=== PATIENT | female | born 1945 | race Caucasian/White ===

== ENCOUNTER → 2023-10-17 08:40 | Outpatient (REF) | payer MEDICARE, OTHER, SELFPAY | LOC: PAVMRI 08:40 | PROVIDERS: ATTENDING PHYSICIAN Surgery; FAMILY PHYSICIAN Family Medicine | DX: C64.2 Malignant neoplasm of left kidney, except renal pelvis (principal) | CPT/HCPCS: 71045; 74183; A9575 ==

== ENCOUNTER 2024-01-27 18:59 | Emergency (ER) | payer MEDICARE, OTHER, SELFPAY ==
[2024-01-27 19:02] VITALS: BP 172/78
[2024-01-27] MEDS: KENALOG-10 10 MG INTRAARTIC (20:55)
--- NOTE | 2024-01-27 21:45 | ED.MUSCINJ ---
HPI-Injury
<Nader Mccartney PA-C - Last Filed: 01/27/24 21:48>
General
Chief Complaint: Musculo-Skeletal Complaint
Source: patient
Exam Limitations: none
Time Seen by Provider: 01/27/24 20:01
Travel History
Have you had any contact with someone who has COVID-19?: No
Do you have any symptoms of coronavirus? Fever > 100 degrees, chills, cough, shortness of breath, sore throat, loss of taste or smell, muscle aches, or headache?: No
History of Present Illness-Injury
Initial Injury comments:
78-year-old female presents complaining of right knee pain and swelling. No known injury. She has a history of arthritis. She has received lubricant injections. No fever. No other complaints at this time
Past History
<Nader Mccartney PA-C - Last Filed: 01/27/24 21:48>
Past History
ED Past Medical History: HTN and NIDDM
ED Past Surgical History: Negative Cardiac
Social History
Tobacco: Smoker
Alcohol: None
Drug: None
Personal:
Living: with family
Employment: Retired
Family History
Family History: Diabetes
Phy Exam
<Naedr Mccartney PA-C - Last Filed: 01/27/24 21:48>
Physical Exam
Physical Exam:
General: Well-appearing female no acute distress
Musculoskeletal exam: Swelling noted about right knee. Small effusion noted. She has good extension. She is tender over the anterior medial joint line. No overlying erythema or excessive warmth.
Skin is without erythema.
Injury Course
<Nader Mccartney PA-C - Last Filed: 01/27/24 21:48>
Orders/Labs/Results
Orders:
Orders
01/27/24 19:04
Knee, Right 4 or More Views [CR Knee- Right 4 Or More View*] Urgent
Comment:
Reason For Exam: PAIN/SWELLING
01/27/24 20:28
Triamcinolone Acetonide [Kenalog-10] 10 mg INTRAARTIC NOW STA
<Efren Steele MD - Last Filed: 01/27/24 21:52>
Orders/Labs/Results
Orders:
Orders
01/27/24 19:04
Knee, Right 4 or More Views [CR Knee- Right 4 Or More View*] Urgent
Comment:
Reason For Exam: PAIN/SWELLING
01/27/24 20:28
Triamcinolone Acetonide [Kenalog-10] 10 mg INTRAARTIC NOW STA
<Nader Mccartney PA-C - Last Filed: 01/27/24 21:48>
MDM/Problems Addressed
Differential Diagnosis Includes:
Right knee pain. Consider sprain versus underlying degenerative change. Do not suspect septic arthritis clinically given lack of fever lack of skin changes and good motion
Verbal consent obtained for aspiration of right knee and injection of a steroid medicine for symptomatic relief. X-rays were reviewed which are negative for acute fracture but do show degenerative changes.
Under sterile conditions, the right knee was prepped with Betadine and anesthetized in a local fashion using 1% lidocaine. 18-gauge needle was then used to drain approximately 20 mL of straw-colored fluid out of the right knee. Through the same
needle, a mixture of 1% lidocaine, 0.5% Marcaine and Kenalog was injected intra-articularly. A Band-Aid was then applied.
<Nader Mccartney PA-C - Last Filed: 01/27/24 21:48>
*Critical Care Note
Total Time (30-74mins, 75-104mins- exclusive of procedures): Not Applicable
ED Attending Note
<Nader Mccartney PA-C - Last Filed: 01/27/24 21:48>
-
Portions of this chart may have been created with voice recognition software.� Occasional wrong word or��sound alike� substitutions may have occurred due to the inherent limitations of voice recognition software.
<Efren Steele MD - Last Filed: 01/27/24 21:52>
ED Attending Note
Patient seen and examined by attending physician: Yes
I performed the substantive portion of visit, reviewed & personally made and approve the management plan that is documented in note by myself or SHANIQUA.: Yes
ED Attending Note:
78-year-old female complaining of ongoing right knee pain. Patient is supposed to have knee replacement but has put it off. No fever chills or infectious symptoms. She is here because last year it was drained and neck improved symptoms
significantly.
On exam patient is nontoxic in no distress. She has chronic appearing arthritic changes and swelling to the right knee. There is a small effusion clinically. There is no unusual warmth or erythema.
Clinical suspicion for septic arthritis very low. I explained the risk of an injection and arthrocentesis. Patient insists that she would like this done. She is aware of the risk.
Discharge Plan
Departure
Patient Disposition: Home (Routine Discharge)
Date of Disposition: 01/27/24
Time of Disposition: 21:47
Patient with high blood pressure during this ER visit?: No
Discharge Problem:
Effusion, right knee
Instructions: Muscle and Bone Pain (DC)
Prescriptions:
No Action
amiloride-hydrochlorothiazide 1 TABLET tablet
50 mg PO QPM
simvastatin 80 MG tablet
80 mg PO QPM
glucosamine zimmerman 2KCl-chondroit [Glucosamine Sulf-Chondroitin] 1 EACH capsule
1 cap PO BID
metformin 500 MG tablet extended release 24 hr
1,500 mg PO QPM
gxpoyfxw-llz-RZ-lycopen-lutein [Centrum Silver] 1 EACH tablet
1 ea PO DAILY
Potassium Gluconate 595 MG Tab
3 tab PO DAILY
acetaminophen 325 MG tablet
650 mg PO Q4HPRN PRN (Reason: mild pain) 0RF
hydrocodone-acetaminophen 1 TABLET tablet
1 - 2 tab PO Q4HPRN PRN (Reason: moderate to severe pain) Qty: 25 0RF
hydrocodone-acetaminophen 1 TABLET tablet
1 - 2 tab PO Q4HPRN PRN (Reason: moderate to severe pain) Qty: 20 0RF
Referrals:
Jacek Colbert MD [Family Provider] -
Activity Restrictions/Additional Instructions:
You may continue with Tylenol for pain. Follow-up with your orthopedic doctor. Return if needed
Interventions
Interventions:
*Risk Screen - Suicide Last Done: 01/27/24 19:02
*General Assessment Last Done: 01/27/24 21:10
*Neglect/Abuse Screening Last Done: 01/27/24 19:02
*ED COVID-19 Vaccine History Last Done: 01/27/24 21:10
ED-Musculoskeletal Assessment Last Done: 01/27/24 21:10
Discharge Date and Time
Print Language: GABONESE
== END 2024-01-27 21:57 | disposition home or self-care (01) ==
LOC: EMR 18:59
PROVIDERS: EMERGENCY PHYSICIAN Emergency Medicine; FAMILY PHYSICIAN Family Medicine
DX: M25.461 Effusion, right knee (principal); I10 Essential (primary) hypertension; E11.9 Type 2 diabetes mellitus without complications; F17.200 Nicotine dependence, unspecified, uncomplicated; Z83.3 Family history of diabetes mellitus
CPT/HCPCS: 99283; 73564

== ENCOUNTER 2024-04-15 19:49 | Emergency (ER) | payer MEDICARE, OTHER, SELFPAY ==
[2024-04-15 19:51] VITALS: BP 194/84
--- NOTE | 2024-04-15 20:07 | ED.GENMED ---
History of Present Illness
General
Chief Complaint: Musculo-Skeletal Complaint
Source: patient
Exam Limitations: none
Time Seen by Provider: 04/15/24 19:59
History of Present Illness
History of Present Illness:
See MDM
Past History
Past History
ED Past Medical History: HTN and NIDDM
ED Past Surgical History: Negative Cardiac
Social History
Tobacco: Smoker
Alcohol: None
Drug: None
Personal:
Living: with family
Employment: Retired
Family History
Family History: Diabetes
Phy Exam
Physical Exam
Physical Exam:
See MDM
Course
Orders/Labs/Results
Orders:
Orders
04/15/24 20:16
Triamcinolone Acetonide [Kenalog-10] 10 mg INTRAARTIC NOW STA
Vital Signs
Initial and Last Documented VS:
Initial Vital Signs
Temp Pulse Resp BP Pulse Ox
97.8 F 94 22 194/84 100
04/15/24 19:51 04/15/24 19:51 04/15/24 19:51 04/15/24 19:51 04/15/24 19:51
Last Documented Vital Signs
Temp Pulse Resp BP Pulse Ox
97.8 F 94 22 194/84 100
04/15/24 19:51 04/15/24 19:51 04/15/24 19:51 04/15/24 19:51 04/15/24 19:51
Procedures
Incision/Drainage/Joint Aspiration
Right Anterior Medial Knee:
Anethesia: 1% Lidocaine
Preparation: cleaned with Betadine
Type of procedure: drain
Nature of site: other (Effusion)
Description of abscess: greater than 3cm
Loculations broken up: No
How much fluid was obtained?: number in mls (30 mL)
Fluid description: straw colored
Treatment: bandaid applied
Additional information:
After 30 mL of straw-colored fluid was removed, 10 mL of Kenalog was injected
MDM/Problems Addressed
Differential Diagnosis Includes:
HPI and MDM Narrative:
78-year-old female presenting with right knee swelling and pain. Symptoms started earlier this morning. She does have a history of arthritis and states she is being followed up for a knee replacement. She denies trauma, redness or fevers.
Patient states last time she had something like this she received a knee injection of steroids which helped
Physical exam
General: Well appearing and non-toxic
HEENT: protecting airway
Neck: appears supple
CV: No evidence of cyanosis
Resp: No accessory muscle use
Abd: Non-distended
Extremities: Right knee effusion without skin changes. No micromotion tenderness.
Neuro: alert
Psych: Normal affect
Skin: Intact
Problems Addressed including Acute and Chronic Conditions affecting care:
1. Right knee effusion
Acuity: acute
Prognosis: stable
Details: Patient gave verbal consent for arthrocentesis and injection of steroids understand the risk of infection
Updates
Patient tolerated procedure well. 30 cc of straw-colored fluid removed from right knee. 10 mL of Kenalog was injected. Patient tolerated procedure well without complication
Differential Diagnosis (but not limited to): Knee effusion, arthritis
Testing considered: Knee x-ray but she denies trauma
Drug therapy (if applicable): OTC meds, please see d/c instruction regarding Rx drugs
Amount and/or Complexity of Data Reviewed
Clinical info obtained from: Patient
External data reviewed: N/A
Labs I independently reviewed (but not limited to): N/A
Radiology: N/A
Pulse Ox: not hypoxic
EKG independently reviewed: N/A
Membership Administrator: N/A
Critical Care: N/A
Risk of Complication:
Social Determinants of health: Good social support
Discussed with other providers: N/A
Escalation of Care includes Admit/Obs: After being observed in the Emergency Department, pt stable for discharge.
Occasional wrong word or 'sound a like' substitutions may have occurred due to the inherent limitations of voice recognition software. Read the chart carefully and recognize, using context, where substitutions have occurred.
*Critical Care Note
Total Time (30-74mins, 75-104mins- exclusive of procedures): Not Applicable
ED Attending Note
-
Portions of this chart may have been created with voice recognition software.� Occasional wrong word or��sound alike� substitutions may have occurred due to the inherent limitations of voice recognition software.
Discharge Plan
Departure
Patient Disposition: Home (Routine Discharge)
Date of Disposition: 04/15/24
Time of Disposition: 20:39
Patient with high blood pressure during this ER visit?: Yes
Discharge Problem:
Effusion of knee joint right
Instructions: BLOOD PRESSURE
Prescriptions:
No Action
amiloride-hydrochlorothiazide 1 TABLET tablet
50 mg PO QPM
simvastatin 80 MG tablet
80 mg PO QPM
glucosamine zimmerman 2KCl-chondroit [Glucosamine Sulf-Chondroitin] 1 EACH capsule
1 cap PO BID
metformin 500 MG tablet extended release 24 hr
1,500 mg PO QPM
ukbzkgjv-ion-XA-lycopen-lutein [Centrum Silver] 1 EACH tablet
1 ea PO DAILY
Potassium Gluconate 595 MG Tab
3 tab PO DAILY
acetaminophen 325 MG tablet
650 mg PO Q4HPRN PRN (Reason: mild pain) 0RF
hydrocodone-acetaminophen 1 TABLET tablet
1 - 2 tab PO Q4HPRN PRN (Reason: moderate to severe pain) Qty: 25 0RF
hydrocodone-acetaminophen 1 TABLET tablet
1 - 2 tab PO Q4HPRN PRN (Reason: moderate to severe pain) Qty: 20 0RF
Referrals:
Jacek Colbert MD [Family Provider] -
Activity Restrictions/Additional Instructions:
I removed 30 mL of normal-appearing fluid from your right knee. I injected 10 mL of Kenalog which is a long-acting steroid. Please follow-up with your orthopedist to discuss further treatment options and placement. Return for worsening pain or if
you develop any redness or fevers.
Please talk to your doctor about your elevated blood pressure.
Interventions
Interventions:
*Risk Screen - Suicide Last Done: 04/15/24 19:51
*Neglect/Abuse Screening Last Done: 04/15/24 19:51
ED-Musculoskeletal Assessment Last Done: 04/15/24 19:58
Discharge Date and Time
Print Language: FRENCH
[2024-04-15 20:14] VITALS: BMI 25.6
[2024-04-15] MEDS: KENALOG-10 10 MG INTRAARTIC (20:38)
[2024-04-15 20:56] VITALS: BP 182/85
== END 2024-04-15 20:59 | disposition home or self-care (01) ==
LOC: EMR 19:49
PROVIDERS: EMERGENCY PHYSICIAN Student in an Organized Health Care Education/Training Program; FAMILY PHYSICIAN Family Medicine
DX: M25.461 Effusion, right knee (principal); I10 Essential (primary) hypertension; F17.200 Nicotine dependence, unspecified, uncomplicated
CPT/HCPCS: 99284; 20610

== ENCOUNTER 2024-05-12 00:29 | Emergency (ER) | payer MEDICARE, OTHER, SELFPAY ==
[2024-05-12 00:35] VITALS: BP 122/75
[2024-05-12 01:05] LABS: % Basophils 0.3 % (0-2); % Immature Granulocytes 0.8 % (0-0.5); % Lymphocytes 3.6 % (20.5-51.1); % Monocytes 7.1 % (1.7-9.3); % Neutrophils 85.2 % (42.2-75.2); Absolute Eosinophils 0.4 10^3/uL (0-0.7); Absolute Immature Granulocytes 0.1 10^3/uL (0-0.05); Absolute Lymphocytes 0.5 10^3/uL (1.2-3.4); Absolute Neutrophils 11.9 10^3/uL (1.4-6.5); Hematocrit 34.8 % (37.0-47.0); Hemoglobin 12.3 g/dL (12.0-16.0); Mean Corp Hgb Conc. 35.3 g/dL (33.0-37.0); Mean Corpuscular Hgb 29.9 pg (27.0-31.0); Mean Corpuscular Volume 84.5 fL (81.0-99.0); Mean Platelet Volume 9.1 fL (7.4-10.4); Nucleated Red Blood Cells % 0 %; Platelet Count 258 10^3/uL (130-400); Red Blood Cell Count 4.12 10^6/uL (4.20-5.40); Red Cell Dist. Width 12.5 % (11.5-14.5)
[2024-05-12 01:08] LABS: Urine Albumin 3+ (Neg - Trace); Urine Bilirubin Negative (Negative); Urine Character Clear (Clear); Urine Color Yellow; Urine Glucose Negative (Negative); Urine Ketone 1+ (Negative); Urine Leukocyte Negative (Negative); Urine Nitrite Negative (Negative); Urine Occult Blood Negative (Negative); Urine Specific Gravity 1.015 (<1.030); Urine Urobilinogen Negative (Neg - 1+)
[2024-05-12 01:17] LABS: Lactic Acid 1.8 mmol/L (0.7-2.0)
[2024-05-12 01:18] LABS: ALT (SGPT) 20 U/L (0-35); AST (SGOT) 32 U/L (14-36); Albumin 4.2 g/dl (3.5-5.0); Alkaline Phosphatase 78 U/L (38-126); Blood Urea Nitrogen 18 mg/dl (7-17); Calcium 11.1 mg/dl (8.4-10.2); Carbon Dioxide 25 mmol/L (22-30); Chloride 90 mmol/L (98-107); Glucose 150 mg/dl (70-99); Potassium 3.6 mmol/L (3.5-5.1); Sodium 129 mmol/L (135-145); Total Protein 6.9 g/dl (6.3-8.2); eGFR > 60.00
[2024-05-12 01:19] LABS: Urine Bacteria Few (Negative); Urine Red Blood Cell 0-2 /HPF (0-2)
[2024-05-12 01:20] LABS: COVID-19 Antigen Negative (Negative)
[2024-05-12 01:29] LABS: Troponin I < 0.012 ng/ml
[2024-05-12 02:06] VITALS: BMI 24.4
[2024-05-12] MEDS: NSS 1000 IV ×2 (02:16→03:48)
--- NOTE | 2024-05-12 02:17 | ED.GENMED ---
History of Present Illness
<Rio Agarwal DO - Last Filed: 05/12/24 02:34>
General
Chief Complaint: Fever
Time Seen by Provider: 05/12/24 01:15
<Della Guy DO, Resident - Last Filed: 05/12/24 05:06>
General
Source: patient and spouse
Exam Limitations: none
Nursing documentation reviewed up to this point in time: agreed with
Travel History
Have you traveled to any high risk areas for coronavirus over the past 14 days?: No
Have you had any contact with someone who has COVID-19?: No
Do you have any symptoms of coronavirus? Fever > 100 degrees, chills, cough, shortness of breath, sore throat, loss of taste or smell, muscle aches, or headache?: Yes
History of Present Illness
History of Present Illness:
Ms. Maral Cordova is a 78yo F pmh HTN, diabetes, L renal cell carcinoma s/p nephrectomy in the ED for fever. Yesterday she started having chills, headache, SOB, productive cough, dizziness, lightheadedness, and nausea. She vomited earlier today,
no hematemesis. She reports intermittent chest tightness over her sternum. Denies diarrhea, abdominal pain, palpitations, sore throat. Still has increased urinary frequency from UTI. brought her to the ER after she developed a fever of 101.5.
COVID negative at home.
She is currently on an antibiotic for a UTI and admits she has missed doses due to feeling unwell.
Past History
<Della Guy DO, Resident - Last Filed: 05/12/24 05:06>
Past History
ED Past Medical History: Cancer (L renal cell carcinoma, s/p nephrectomy), HTN, NIDDM and Psychiatric
ED Past Surgical History: Cholecystectomy, Gynecological and Orthopedic
Social History
Tobacco: Smoker
Alcohol: None
Drug: None
Personal:
Living: with family
Employment: Retired
Family History
Family History: Diabetes
Review of Systems
<Dlela Guy DO, Resident - Last Filed: 05/12/24 05:06>
Review of Systems
Allergies reviewed?: Yes
All Other Systems: ROS reviewed and negative except as documented in HPI and ROS
Phy Exam
<Della Guy DO, Resident - Last Filed: 05/12/24 05:06>
General Physical Exam
General Presentation: mild distress
General age: appears older than age
General Skin: warm and dry
General Habitus: elderly
General Mental: alert
General Hydration: dry mucous membranes and poor skin turgor
Cardiovascular Exam
Cardiovascular Exam: no edema, no gallop, no murmur and tachycardia
Heart Sounds: normal
Pulmonary Exam
Pulmonary Exam: no rales, no crackles, no rhonchi, no stridor, no wheezing, no cough, accessory muscle use and decreased breath sounds
Respiratory Effort: tachypnea
Oxygen Status: room air
Gastrointestinal Exam
Gastrointestinal Exam: non tender, soft, no organomegaly and non distended
Auscultation of Abdomen: hyperactive
Neurological Exam
Neurological Exam: alert, oriented x3 and speech normal
Psychiatric Exam
Psychiatric Exam: normal mood/affect
Course
<Rio Agarwal, DO - Last Filed: 05/12/24 02:34>
Orders/Labs/Results
Orders:
Orders
05/12/24 00:39
Electrocardiogram (*1) Urgent
Reason for Study: Other
Other Reason for Exam: Possible Sepsis
EKG- Treatment ONCE
CR Chest - 2 Views Urgent
Comment:
Reason For Exam: fever, cough
05/12/24 00:57
COVID-19 Antigen Urgent
Source: Nasal Swab
Complete Blood Count/With Diff Urgent
Comprehensive Metabolic Panel Urgent
Lactic Acid Q4H
Comment: ON ICE, CANCEL 2ND ORDER IF FIRST LACTIC ACID LEVEL <2
Troponin I Urgent
Urinalysis Reflex To Culture Urgent
Date Specimen was Collected: 05/12/24
Time Specimen was Collected: 00:55
Urine Microscopic Reflex Cult Urgent
Influenza A+B Rapid Molecular Urgent
SANJAY Source: Nasal Swab
Specimen Description:
Date Specimen was Collected: 05/12/24
Time Specimen was Collected: 00:55
05/12/24 02:06
0.9% Sodium Chloride 1000 ml [Nss] 1,000 ml IV BOLUS
05/12/24 02:17
Acetaminophen [Tylenol] 650 mg PO NOW STA
05/12/24 03:43
0.9% Sodium Chloride 1000 ml [Nss] 1,000 ml IV BOLUS
Abnormal Lab Results
05/12/24
00:57
WBC 14.0 H 10^3/uL
(4.8-10.8)
RBC 4.12 L 10^6/uL
(4.20-5.40)
Hct 34.8 L %
(37.0-47.0)
Abs Immat Gran (auto) 0.1 H 10^3/uL
(0-0.05)
Absolute Neuts (auto) 11.9 H 10^3/uL
(1.4-6.5)
Absolute Lymphs (auto) 0.5 L 10^3/uL
(1.2-3.4)
Absolute Monos (auto) 1.0 H 10^3/uL
(0.1-0.6)
Immature Gran % 0.8 H %
(0-0.5)
Neutrophils % 85.2 H %
(42.2-75.2)
Lymphocytes % 3.6 L %
(20.5-51.1)
Sodium 129 L mmol/L
(135-145)
Chloride 90 L mmol/L
(98-107)
BUN 18 H mg/dl
(7-17)
Glucose 150 H mg/dl
(70-99)
Calcium 11.1 H mg/dl
(8.4-10.2)
Total Bilirubin 2.0 H mg/dl
(0.2-1.3)
Urine Ketones 1+ A
(Negative)
Urine Bacteria (Reflex) Few A
(Negative)
Urine Albumin (Reflex) 3+ A
(Neg - Trace)
05/12/24 00:57
05/12/24 00:57
Vital Signs
Initial and Last Documented VS:
Initial Vital Signs
Temp Pulse Resp BP Pulse Ox
100.6 F H 132 26 122/75 95
05/12/24 00:35 05/12/24 00:35 05/12/24 00:35 05/12/24 00:35 05/12/24 00:35
Last Documented Vital Signs
Temp Pulse Resp BP Pulse Ox
100.2 F 90 21 132/55 100
05/12/24 03:06 05/12/24 04:45 05/12/24 04:45 05/12/24 03:03 05/12/24 04:15
<Della Guy DO, Resident - Last Filed: 05/12/24 05:06>
Orders/Labs/Results
Orders:
Orders
05/12/24 00:39
Electrocardiogram (*1) Urgent
Reason for Study: Other
Other Reason for Exam: Possible Sepsis
EKG- Treatment ONCE
CR Chest - 2 Views Urgent
Comment:
Reason For Exam: fever, cough
05/12/24 00:57
COVID-19 Antigen Urgent
Source: Nasal Swab
Complete Blood Count/With Diff Urgent
Comprehensive Metabolic Panel Urgent
Lactic Acid Q4H
Comment: ON ICE, CANCEL 2ND ORDER IF FIRST LACTIC ACID LEVEL <2
Troponin I Urgent
Urinalysis Reflex To Culture Urgent
Date Specimen was Collected: 05/12/24
Time Specimen was Collected: 00:55
Urine Microscopic Reflex Cult Urgent
Influenza A+B Rapid Molecular Urgent
SANJAY Source: Nasal Swab
Specimen Description:
Date Specimen was Collected: 05/12/24
Time Specimen was Collected: 00:55
05/12/24 02:06
0.9% Sodium Chloride 1000 ml [Nss] 1,000 ml IV BOLUS
05/12/24 02:17
Acetaminophen [Tylenol] 650 mg PO NOW STA
05/12/24 03:43
0.9% Sodium Chloride 1000 ml [Nss] 1,000 ml IV BOLUS
Abnormal Lab Results
05/12/24
00:57
WBC 14.0 H 10^3/uL
(4.8-10.8)
RBC 4.12 L 10^6/uL
(4.20-5.40)
Hct 34.8 L %
(37.0-47.0)
Abs Immat Gran (auto) 0.1 H 10^3/uL
(0-0.05)
Absolute Neuts (auto) 11.9 H 10^3/uL
(1.4-6.5)
Absolute Lymphs (auto) 0.5 L 10^3/uL
(1.2-3.4)
Absolute Monos (auto) 1.0 H 10^3/uL
(0.1-0.6)
Immature Gran % 0.8 H %
(0-0.5)
Neutrophils % 85.2 H %
(42.2-75.2)
Lymphocytes % 3.6 L %
(20.5-51.1)
Sodium 129 L mmol/L
(135-145)
Chloride 90 L mmol/L
(98-107)
BUN 18 H mg/dl
(7-17)
Glucose 150 H mg/dl
(70-99)
Calcium 11.1 H mg/dl
(8.4-10.2)
Total Bilirubin 2.0 H mg/dl
(0.2-1.3)
Urine Ketones 1+ A
(Negative)
Urine Bacteria (Reflex) Few A
(Negative)
Urine Albumin (Reflex) 3+ A
(Neg - Trace)
05/12/24 00:57
05/12/24 00:57
Vital Signs
Initial and Last Documented VS:
Initial Vital Signs
Temp Pulse Resp BP Pulse Ox
100.6 F H 132 26 122/75 95
05/12/24 00:35 05/12/24 00:35 05/12/24 00:35 05/12/24 00:35 05/12/24 00:35
Last Documented Vital Signs
Temp Pulse Resp BP Pulse Ox
100.2 F 90 21 132/55 100
05/12/24 03:06 05/12/24 04:45 05/12/24 04:45 05/12/24 03:03 05/12/24 04:15
<Della Guy DO, Resident - Last Filed: 05/12/24 05:06>
MDM/Problems Addressed
Differential Diagnosis Includes:
shock, pneumonia, bacteremia, UTI
MDM/Problems Addressed:
Ms. Maral Cordova is a 78yo F pmh HTN and diabetes in the ED for fever.
Shock is unlikely at this time as patient's tachycardia improved with IV fluids. Along with exam findings of dry mucous membranes and skin tenting, it is more likely that the patient was volume depleted.
UTI is likely resolved at this time as the urinalysis/urine microscopy is negative for blood, nitrites, leukocyte esterase. There are few bacteria, which could be from contamination since there are also squamous epithelial cells present.
Pneumonia is unlikely at this time as there are no areas of consolidations on CXR, COVID/flu swabs are negative, and no rales/rhonchi/wheezing on pulmonary auscultation.
Bacteremia is less likely at this time as the pt is already on antibiotic course, resolved UTI, and no infectious finding on CXR.
02:55
Walked into room and the pt was sleeping. She awoke, and states she is starting to feel better. Her tachycardia is improving with fluids (132 --> 105). Her fever has resolved.
03:40
1 L normal saline finished. Pt feels better, however she still has a headache and feels dehydrated. Will order another saline bolus.
05:00
Pt is sleeping. HR has further improved to the mid 80s.
Chronic conditions affecting care: DM, HTN, Previous abdomnial surgery and Psychiatric illness
<Della Guy DO, Resident - Last Filed: 05/12/24 05:06>
*Radiology
Radiology exam reviewed: preliminary read by ED provider
*EKG
Interpreted by ED Provider?: Yes
Interpretation: abnormal
Comparison EKG: changes noted
Heart Rate: 119
Rate: tachycardiac
Rhythm: sinus
Interval: normal interval, normal QT interval and normal LA interval
QRS Pattern: right bundle branch block
Ischemia: no ischemia
*Organizational Consultant Interpretation
Rate: tachycardiac
Interpretation: abnormal
Heart Rate: 108
Rhythm: sinus
*Critical Care Note
Total Time (30-74mins, 75-104mins- exclusive of procedures): Not Applicable
Data Reviewed
Review of Other/Old Records Reveals: Labs and Records
Source: patient, records and previous hospital records
ED Attending Note
<Rio Agarwal DO - Last Filed: 05/12/24 02:34>
ED Attending Note
Patient seen and examined by attending physician: Yes
I performed a history and physical exam of patient and discussed management with resident, I reviewed resident's note and agree with documented findings and plan of care.: Yes
ED Attending Note:
I have seen and evaluated the patient with a [id number] encounter. I have spoken to the resident and involved in the medical history, the physical exam, medical decision making.
Evaluation and management service: agree unless noted differently below.
Results interpretation: agree unless noted differently below.
Focused HPI: 78-year-old female presenting with shortness of breath, cough and fever. Patient found to be febrile arrival. She is currently on antibiotic for urinary tract infection. She still feels some urinary symptoms
Physical exam: Mildly dry. Lungs are clear. Abdomen soft nontender. Posterior pharynx clear
Medical Decision Making: Patient found to have a fever but she is already on antibiotics. There is no bacterial infection noted on exam. Her lungs are clear and her abdomen is soft and nontender. She does have some lab abnormalities which
included an expected leukocytosis. She is mildly but not far from baseline. Her leukocytosis appears to be chronic as well and we discussed having this followed up as an outpatient. Her elevated bilirubin is also chronic. Her abdomen is soft and
nontender. Although she still has some urinary symptoms, her urine appears clear. Her chest x-ray is also clear as well. We discussed the likelihood of viral syndrome. Will reassess after IV fluids
<Della Guy DO, Resident - Last Filed: 05/12/24 05:06>
-
Portions of this chart may have been created with voice recognition software.� Occasional wrong word or��sound alike� substitutions may have occurred due to the inherent limitations of voice recognition software.
Discharge Plan
Departure
Patient Disposition: Home (Routine Discharge)
Date of Disposition: 05/12/24
Time of Disposition: 03:48
Patient with high blood pressure during this ER visit?: No
Condition: Fair
Discharge Problem:
Dehydration symptoms, Acute viral syndrome
Instructions: Viral Syndrome (DC), Dehydration, Adult ED
Prescriptions:
No Action
amiloride-hydrochlorothiazide 1 TABLET tablet
50 mg PO QPM
simvastatin 80 MG tablet
80 mg PO QPM
glucosamine zimmerman 2KCl-chondroit [Glucosamine Sulf-Chondroitin] 1 EACH capsule
1 cap PO BID
metformin 500 MG tablet extended release 24 hr
1,500 mg PO QPM
hfjscitl-arf-PC-lycopen-lutein [Centrum Silver] 1 EACH tablet
1 ea PO DAILY
Potassium Gluconate 595 MG Tab
3 tab PO DAILY
acetaminophen 325 MG tablet
650 mg PO Q4HPRN PRN (Reason: mild pain) 0RF
hydrocodone-acetaminophen 1 TABLET tablet
1 - 2 tab PO Q4HPRN PRN (Reason: moderate to severe pain) Qty: 25 0RF
hydrocodone-acetaminophen 1 TABLET tablet
1 - 2 tab PO Q4HPRN PRN (Reason: moderate to severe pain) Qty: 20 0RF
Referrals:
Jacek Colbert MD [Family Provider] -
Activity Restrictions/Additional Instructions:
Please continue drinking plenty of clear fluids to stay hydrated.
Please continue taking your antibiotics until they are finished.
Please call Dr. Colbert in the morning and schedule a follow-up appointment.
Please return to the emergency department if your symptoms worsen. This includes worsening cough, shortness of breath, worsening vomiting, feeling dehydrated and unable to keep fluids down.
Interventions
Interventions:
*Risk Screen - Suicide Last Done: 05/12/24 00:35
*General Assessment Last Done: 05/12/24 00:35
*Neglect/Abuse Screening Last Done: 05/12/24 00:35
ED- Fall Risk Assessment Last Done: 05/12/24 02:02
*ED COVID-19 Vaccine History Last Done: 05/12/24 02:02
ED- Neurological Assessment Last Done: 05/12/24 02:02
ED-Skin Assessment Last Done: 05/12/24 02:02
Discharge Date and Time
Print Language: YI
[2024-05-12] MEDS: TYLENOL 650 MG PO (02:24)
[2024-05-12 03:03] VITALS: BP 132/55
== END 2024-05-12 05:45 | disposition home or self-care (01) ==
LOC: EMR 00:29
PROVIDERS: EMERGENCY PHYSICIAN Student in an Organized Health Care Education/Training Program; FAMILY PHYSICIAN Family Medicine
DX: B34.9 Viral infection, unspecified (principal); E86.0 Dehydration; F17.200 Nicotine dependence, unspecified, uncomplicated; E11.9 Type 2 diabetes mellitus without complications; I10 Essential (primary) hypertension; Z11.52 Encounter for screening for COVID-19
CPT/HCPCS: 99285; 96360; 96361; 71046; 80053; 81003; 81015; 83605; 84484; 85025; 87502; 87811; 93005

== ENCOUNTER → 2024-06-05 12:03 | Outpatient (REF) | payer MEDICARE, OTHER, SELFPAY ==
[2024-06-06 14:22] LABS: Lyme Antibody Screen, EIA Negative (Negative)
== END ==
LOC: REG 12:03
PROVIDERS: ATTENDING PHYSICIAN Specialist; FAMILY PHYSICIAN Family Medicine
DX: M25.461 Effusion, right knee (principal)
CPT/HCPCS: 36415; 86618; 87015; 87070; 87205; 89051; 89060

== ENCOUNTER → 2024-10-13 11:07 | Outpatient (REF) | payer MEDICARE, OTHER, SELFPAY | LOC: PAVMRI 11:07 | PROVIDERS: ATTENDING PHYSICIAN Surgery; FAMILY PHYSICIAN Family Medicine | DX: C64.2 Malignant neoplasm of left kidney, except renal pelvis (principal) | CPT/HCPCS: 71046; 74183; A9575 ==

== ENCOUNTER → 2025-06-22 15:56 | Outpatient (REF) | payer MEDICARE, OTHER, SELFPAY ==
[2025-06-22 17:28] LABS: Body Fluid Second Tech RP
[2025-06-22 17:57] LABS: C-Reactive Protein > 270.00 mg/L (0.0-10.00)
== END ==
LOC: REG 15:56
PROVIDERS: ATTENDING PHYSICIAN Physician Assistant Surgical; FAMILY PHYSICIAN Family Medicine
DX: M25.462 Effusion, left knee (principal)
CPT/HCPCS: 36415; 85652; 86140; 86618; 89051; 89060

== ENCOUNTER → 2025-07-03 14:41 | Outpatient (REF) | payer MEDICARE, OTHER, SELFPAY | LOC: RAD 14:41 | PROVIDERS: ATTENDING PHYSICIAN Student in an Organized Health Care Education/Training Program; FAMILY PHYSICIAN Family Medicine | DX: M19.90 Unspecified osteoarthritis, unspecified site (principal) | CPT/HCPCS: 73120 ==